=== PATIENT | female | born 1940 | race Caucasian/White ===

== ENCOUNTER 2021-11-18 14:20 | Emergency (ER) | payer SELFPAY ==
[~2021-11-18] VITALS: Ht 157.5 cm; Wt 79.0 kg
[2021-11-18 14:45] VITALS: BP 139/62
[2021-11-18 14:49] LABS: HEMATOCRIT 36.4 % (37.0-47.0); IMMATURE GRANULOCYTES 0.1 % (0.0-5.0); MEAN CELL VOLUME 96.8 fL CALC (80.0-100.0); MEAN CORPUSCULAR HGB 31.9 pG CALC (26.0-32.0); NEUT# 5.75 thou/uL (2.00-7.15); RED BLOOD COUNT 3.76 mill/uL (4.20-5.60); RED CELL DISTRI WIDTH 11.9 % (11.5-15.5)
[2021-11-18 15:01] VITALS: BP 85/64
[2021-11-18 15:06] LABS: URINE BILIRUBIN - DIPSTICK NEGATIVE (NEGATIVE); URINE BLOOD DIPSTICK NEGATIVE (NEGATIVE); URINE COLOR YELLOW; URINE GLUCOSE - DIPSTICK NEGATIVE (NEGATIVE); URINE KETONE NEGATIVE (NEGATIVE); URINE LEUK ESTERASE NEGATIVE (NEGATIVE); URINE PH 5.5 (4.5-8.0); URINE PROTEIN - DIPSTICK NEGATIVE (NEG-TRACE); URINE UROBILINOGEN - DIPSTICK 0.2 E.U./dL (0.2)
[2021-11-18 15:07] LABS: URINE NITRITE - DIPSTICK NEGATIVE (Negative)
[2021-11-18 15:07] LABS: ALKALINE PHOSPHATASE 48 u/l (38-126); ANION GAP 13 (6-22 (CALC)); BILIRUBIN, TOTAL 0.7 mg/dL (0.0-1.4); BUN 24 mg/dL (8-23); BUN/CREATININE RATIO 24 (12-20 (CALC)); CARBON DIOXIDE 30 mmol/l (22-30); CHLORIDE 102 mmol/l (95-108); GFR 53 ML/MIN (>=60 (CALC)); GFR FOR AFR.AMER. > 60 ML/MIN (>=60 (CALC)); POTASSIUM 3.8 mmol/l (3.5-5.1); SGOT/AST 17 u/l (9-36); SODIUM 141 mmol/l (137-146); TOTAL PROTEIN 6.8 g/dL (6.3-8.2)
[2021-11-18 15:26] VITALS: BP 116/70
[2021-11-18 16:30] VITALS: BP 127/63
== END 2021-11-18 17:10 | disposition home or self-care (01) | DRG 923 ==
LOC: ED 14:20
PROVIDERS: Family Medicine
DX: Z04.3 Encounter for examination and observation following other accident (principal); I10 Essential (primary) hypertension; E11.9 Type 2 diabetes mellitus without complications; E78.5 Hyperlipidemia, unspecified; G30.9 Alzheimer's disease, unspecified; F02.80 Dementia in other diseases classified elsewhere, unspecified severity, without behavioral disturbance, psychotic disturbance, mood disturbance, and anxiety

== ENCOUNTER 2022-01-04 16:10 | Observation (INO) | payer MEDICARE ==
[~2022-01-04] VITALS: Ht 157.5 cm; Wt 76.0 kg
--- NOTE | 2022-01-04 16:41 | NUR ---
PT ESCORTED WITH VIA WHEELCHAIR TO TRIAGE FOR EVAL OF FATIGUE AND "WORSENING ALZHEIMERS".
[2022-01-04] MEDS ORDERED: METFORMIN500 M2 PO (16:42)
[2022-01-04 17:16] LABS: HEMATOCRIT 35.3 % (37.0-47.0); HEMOGLOBIN 11.9 g/dl (12.0-16.0); IMMATURE GRANULOCYTES 0.3 % (0.0-5.0); MEAN CELL VOLUME 94.9 fL CALC (80.0-100.0); MEAN CORPUSCULAR HGB CONC 33.7 g/dL CAL (32.0-36.0); NEUT# 7.74 thou/uL (2.00-7.15); RED BLOOD COUNT 3.72 mill/uL (4.20-5.60); RED CELL DISTRI WIDTH 11.9 % (11.5-15.5)
[2022-01-04 17:36] LABS: INTERNATIONAL NORMALIZED RATIO 1.1 RATIO (0.7-1.3)
[2022-01-04 17:37] LABS: ALBUMIN 3.8 g/dL (3.2-5.0); BILIRUBIN, TOTAL 1.2 mg/dL (0.0-1.4); CREATININE 1.3 mg/dL (0.5-1.0); MAGNESIUM 1.2 mg/dL (1.6-2.3); POTASSIUM 4.1 mmol/l (3.5-5.1); TOTAL PROTEIN 7.1 g/dL (6.3-8.2)
--- NOTE | 2022-01-04 17:40 | NUR ---
PT ASSISTED ONTO BEDPAN; DENIES BEING ABLE TO USE IT BECAUSE IT HURTS; ADVISED ON POC;
[2022-01-04 17:50] LABS: MYOGLOBIN 51 ng/mL (0 - 62)
--- NOTE | 2022-01-04 18:40 | NUR ---
IVF INFUSING; ADVISED PT AND SPOUSE ON PENDING ADMISSION AND POC
[2022-01-04 19:02] LABS: URINE BILIRUBIN - DIPSTICK NEGATIVE (NEGATIVE); URINE BLOOD DIPSTICK MODERATE (NEGATIVE); URINE COLOR YELLOW; URINE GLUCOSE - DIPSTICK NEGATIVE (NEGATIVE); URINE KETONE NEGATIVE (NEGATIVE); URINE LEUK ESTERASE MODERATE (NEGATIVE); URINE NITRITE - DIPSTICK POSITIVE (Negative); URINE PROTEIN - DIPSTICK TRACE mg/dL (NEG-TRACE); URINE UROBILINOGEN - DIPSTICK 0.2 E.U./dL (0.2)
[2022-01-04 19:06] LABS: URINE SQUAMOUS EPITHELIAL CELL FEW EPI/hpf (0-FEW)
--- NOTE | 2022-01-04 19:40 | NUR ---
PT ATTEMPTING TO GET OUT OF BED; REORIENTED AT THIS TIME; RAILS UP FOR PT SAFETY
--- NOTE | 2022-01-04 20:40 | NUR ---
PT RESTING ON STRETCHER WITH EYES CLOSED; NO S/S OF DISTRESS NOTED
--- NOTE | 2022-01-04 21:40 | NUR ---
PT ATTEMPTING TO GET OUT OF BED; REORIENTED PT; ADVISED ON PENDING ADMISSION
--- NOTE | 2022-01-04 22:10 | NUR ---
DR. ARNDT CALLED FOR ORDERS.
--- NOTE | 2022-01-04 22:34 | NUR ---
TELEPHONE REPORT GIVEN TO KEL FORD. PT UP TO ROOM 260 WITH Rosales PEREZ CNA VIA . ON TELEMETRY.
[2022-01-04 23:00] VITALS: BP 148/53
--- NOTE | 2022-01-04 23:00 | NUR ---
PT WAS BROUGHT UP FROM ED BY WHEELCHAIR HAS SITTER AT BEDSIDE PT IS A/O TO SELF, TRIED TO CALL PT - MAKENNA STEWART 3 TIMES AND IT SAID THE NUMBER WAS NOT IN SERVICE, THEN I TRIED TO CALL PT DAUGHTER- BRODY SILVA AND IT WENT TO VOICEMAIL, WILL TRY AGAIN IN THE MORNING, TO DO THE ADMISSION ON THE PT. PT IS PLEASANTLY CONFUSED, PT DOESN'T SEEM TO BE IN ANY DISTRESS, BED IN LOW POSITION, WILL CONTINUE TO MONITOR PT
[2022-01-04 23:04] VITALS: BP 148/53
[2022-01-05 00:27] VITALS: BP 134/63
[2022-01-05 04:37] VITALS: BP 123/52
--- NOTE | 2022-01-05 05:56 | NUR ---
PT IS IN BED ASLEEP NO OVERNIGHT EVENTS, SITTER AT BEDSIDE
[2022-01-05 06:35] VITALS: BP 137/64
--- NOTE | 2022-01-05 07:42 | NUR ---
PT RESTING IN BED WITH SITTER AT BEDSIDE. BREATHING EVEN AND UNLABORED. TELE MONITOR IN PLACE, CONTINOUS MONITORING PER ED. IV 20G INFUSING IVF PER EMAR. FALL/SAFTEY PRECAUTION IN PLACE. CALL LIGHT WITHIN REACH
[2022-01-05 09:37] LABS: ANION GAP 11 (6-22 (CALC)); BUN 18 mg/dL (8-23); BUN/CREATININE RATIO 21 (12-20 (CALC)); CARBON DIOXIDE 25 mmol/l (22-30); CHLORIDE 107 mmol/l (95-108); CREATININE 0.8 mg/dL (0.5-1.0); GFR FOR AFR.AMER. > 60 ML/MIN (>=60 (CALC)); GFR OTHER RACES > 60 ML/MIN (>=60 (CALC)); POTASSIUM 3.7 mmol/l (3.5-5.1); SODIUM 139 mmol/l (137-146)
--- NOTE | 2022-01-05 11:29 | NUR ---
PT AWAKE WATCHING TV. PT IS ALER TO SELF, ABLE TO SAY NAME AND . ABLE TO OBEY COMMANDS. ASSESSMENT ALLOWED. IVF IN FUSINGF PER EMAR. TELE MONITOR IN PLACE, CONTINOUS MONITORING PER ED. SITTER AT BEDSIDE. FALL/SAFTEY PRECAUTION IN PLACE. CALL LIGHT WITHIN REACH
[2022-01-05 14:24] VITALS: BP 127/40
--- NOTE | 2022-01-05 15:36 | NUR ---
PT RESTING IN BED. NO DISTRESS NOTED. BREATHING EVEN AND UNLABORED. FALL/SAFTEY PRECAUTION IN PLACE. CALL LIGHT WITHIN REACH. SITTER AT BEDSIDE. IV PATENT INFUSIFN IVF PER EMAR. TELE MONITOR IN PLACE, CONTINOUS MONITORING PER ED
[2022-01-05 18:58] VITALS: BP 115/47
[2022-01-05 19:00] VITALS: BP 115/47
--- NOTE | 2022-01-05 19:44 | NUR ---
PT LAYING IN BED ASLEEP, SITTER AT BEDSIDE, NO DISTRESS NOTED
[2022-01-06] VITALS: BP 130/40
[2022-01-06 00:18] VITALS: BP 130/40
[2022-01-06 03:53] VITALS: BP 140/44
[2022-01-06 04:00] VITALS: BP 140/44
--- NOTE | 2022-01-06 05:19 | NUR ---
PT IS IN BED SLEEPING, NO DISTRESS NOTED, SITTER AT BEDSIDE
[2022-01-06 05:47] LABS: HEMATOCRIT 32.5 % (37.0-47.0); HEMOGLOBIN 10.9 g/dl (12.0-16.0); MEAN CELL VOLUME 96.2 fL CALC (80.0-100.0); MEAN CORPUSCULAR HGB 32.2 pG CALC (26.0-32.0); MEAN CORPUSCULAR HGB CONC 33.5 g/dL CAL (32.0-36.0); RED BLOOD COUNT 3.38 mill/uL (4.20-5.60); RED CELL DISTRI WIDTH 11.9 % (11.5-15.5)
[2022-01-06 05:57] LABS: ANION GAP 7 (6-22 (CALC)); BUN 11 mg/dL (8-23); BUN/CREATININE RATIO 17 (12-20 (CALC)); CARBON DIOXIDE 26 mmol/l (22-30); CHLORIDE 111 mmol/l (95-108); CREATININE 0.6 mg/dL (0.5-1.0); GFR FOR AFR.AMER. > 60 ML/MIN (>=60 (CALC)); GFR OTHER RACES > 60 ML/MIN (>=60 (CALC)); POTASSIUM 3.9 mmol/l (3.5-5.1); SODIUM 139 mmol/l (137-146)
[2022-01-06 06:59] VITALS: BP 128/48
--- NOTE | 2022-01-06 08:00 | NUR ---
SHIFT CHANGE REPORT, PT SLEEPING SOUNDLY, NO SIGN DISCOMFORT, IVF INFUSING, TELE MONITOR IN PLACE, CALL LYNCH IN REACH AND BED LOCKED IN LOWEST POSITION WITH ALARM ON.
--- NOTE | 2022-01-06 10:20 | NUR ---
AWAKE AND ALERT AT THIS TIME, ORIENTED TO PERSON, PLACE AND TIME, RESTING IN SUPINE POSITION, DENIES PAIN, ALL NEEDS ADDRESSED, CALL LYNCH IN REACH.
[2022-01-06 10:29] VITALS: BP 125/58
--- NOTE | 2022-01-06 12:34 | NUR ---
CONFUSED AT THIS TIME, GETTING OOB ASKING FOR HER SPOUSE AND STATING HE WAS HERE JUST NOW SHE SAW HIM WALK BY THE DOOR AND HEARD HIS VOICE. REORIENTED BUT AWARE SHE IS IN THE HOSPITAL, BED ALARM IN PLACE, WILL CONTINUE TO MONITOR.
--- NOTE | 2022-01-06 12:59 | NUR ---
Pt alert, supine in bed. She was talkative, some confusion noted. She moved supine to sit with supervision, she was able to scoot to edge of bed with supervision. Sit to and from stand with SBA and verbal cues to reach for bed before sitting and push from bed to stand. Gait with RW with redirecting and SBA x 40' and 1 x 80'. Pt had increase confusing with conplex directions, did well with simple directions. BP 133/55, HR 81-74, 02 sats on RA 94-95%. Pt was left in bed with alarm on, callbell and tray in reach. A- Pt required direction and supervision/SBA with activity. [facility] 15 home with home health. P- Pt for d/c today.
--- NOTE | 2022-01-06 13:31 | NUR ---
SPOUSE IS HERE AT THIS TIME, VERY IRATE STATING HE WAS TOLD BY OUR PERFORATING MACHINE OPERATOR THAT PT WOULD BE READY IN ABOUT 1 HOUR AND HE HAD TO DRIVE MORE THAN 1 HR TO GET HERE TO TRANSPORT HER HOME AND SHE IS NOT READY. THERE SEEM TO BE SOME MISUNDERSTANDING WITH WHAT HE WAS TOLD OR WHAT HE UNDERSTOOD BUT THERE IS NOT D/C ORDER AT THIS TIME. DR MOTA NOTIFIED AND RESPONDED THAT HIS INFORMAT[employer] MDM ARCHITECT IS WORKING ON D/C INSTRUCTIONS AT THIS TIME.
[2022-01-06] MEDS ORDERED: KEFLEX500 MG PO (13:45)
--- NOTE | 2022-01-06 14:00 | NUR ---
Discharge instructions given. Patient verbalizes understanding of same. Discharged in fair condition via Wheelchair to Home with spouse. All belongings sent with pt.
== END 2022-01-06 14:37 | disposition home health service (06) ==
LOC: ED 16:10 → ED-I 19:05 → MS2 19:27 → ED 19:27 → MS2 19:27
PROVIDERS: Family Medicine; Nurse Practitioner; ADMIT Internal Medicine; ATTEND Internal Medicine
DX: N39.0 Urinary tract infection, site not specified (principal); N17.9 Acute kidney failure, unspecified; E83.42 Hypomagnesemia; E86.0 Dehydration; I10 Essential (primary) hypertension; E11.9 Type 2 diabetes mellitus without complications; G30.9 Alzheimer's disease, unspecified; F02.80 Dementia in other diseases classified elsewhere, unspecified severity, without behavioral disturbance, psychotic disturbance, mood disturbance, and anxiety; B96.20 Unspecified Escherichia coli [E. coli] as the cause of diseases classified elsewhere; Z79.84 Long term (current) use of oral hypoglycemic drugs; Z20.822 Contact with and (suspected) exposure to COVID-19
CPT/HCPCS: J1650; J3475

== ENCOUNTER 2022-01-13 15:01 | Emergency (ER) | payer MEDICARE ==
[~2022-01-13] VITALS: Ht 157.5 cm; Wt 74.0 kg
[~2022-01-13 15:01] MED LIST: KEFLEX500 MG PO; METFORMIN500 M2 PO
[2022-01-13 15:39] LABS: URINE BILIRUBIN - DIPSTICK NEGATIVE (NEGATIVE); URINE BLOOD DIPSTICK NEGATIVE (NEGATIVE); URINE COLOR YELLOW; URINE GLUCOSE - DIPSTICK NEGATIVE (NEGATIVE); URINE KETONE NEGATIVE (NEGATIVE); URINE LEUK ESTERASE NEGATIVE (NEGATIVE); URINE PH 5.5 (4.5-8.0); URINE PROTEIN - DIPSTICK NEGATIVE (NEG-TRACE); URINE SPECIFIC GRAVITY 1.015; URINE UROBILINOGEN - DIPSTICK 0.2 E.U./dL (0.2)
[2022-01-13 15:44] LABS: URINE NITRITE - DIPSTICK NEGATIVE (Negative)
[2022-01-13 15:53] LABS: HEMOGLOBIN 10.9 g/dl (12.0-16.0); IMMATURE GRANULOCYTES 0.3 % (0.0-5.0); MEAN CELL VOLUME 93.3 fL CALC (80.0-100.0); MEAN CORPUSCULAR HGB 31.8 pG CALC (26.0-32.0); MEAN CORPUSCULAR HGB CONC 34.1 g/dL CAL (32.0-36.0); NEUT# 8.69 thou/uL (2.00-7.15); RED BLOOD COUNT 3.43 mill/uL (4.20-5.60); RED CELL DISTRI WIDTH 11.8 % (11.5-15.5)
[2022-01-13 16:19] LABS: ALBUMIN 3.3 g/dL (3.2-5.0); ALKALINE PHOSPHATASE 54 u/l (38-126); BILIRUBIN, TOTAL 1.2 mg/dL (0.0-1.4); BUN 15 mg/dL (8-23); BUN/CREATININE RATIO 15 (12-20 (CALC)); CARBON DIOXIDE 31 mmol/l (22-30); CHLORIDE 99 mmol/l (95-108); GFR FOR AFR.AMER. > 60 ML/MIN (>=60 (CALC)); GFR OTHER RACES 53 ML/MIN (>=60 (CALC)); LIPASE 35 u/l (23-300); SGOT/AST 12 u/l (9-36); SODIUM 137 mmol/l (137-146); TOTAL PROTEIN 6.1 g/dL (6.3-8.2)
[2022-01-13 16:22] LABS: ANION GAP 10 (6-22 (CALC))
[2022-01-13 18:03] VITALS: BP 106/90
== END 2022-01-13 18:20 | disposition home or self-care (01) ==
LOC: ED 15:01
PROVIDERS: Nurse Practitioner
DX: G30.9 Alzheimer's disease, unspecified (principal); F02.80 Dementia in other diseases classified elsewhere, unspecified severity, without behavioral disturbance, psychotic disturbance, mood disturbance, and anxiety; E87.6 Hypokalemia; R35.0 Frequency of micturition; I10 Essential (primary) hypertension; E11.9 Type 2 diabetes mellitus without complications; Z79.84 Long term (current) use of oral hypoglycemic drugs